=== PATIENT | female | born 1955 | race Caucasian/White ===

== ENCOUNTER 2016-04-23 12:21 | Emergency (ER) | payer OTHER ==
[2016-04-23] MEDS ORDERED: BUPIVACAINE HCL/PF 0.5% 30 ML VIAL ONE (12:56)
[2016-04-23] MEDS ORDERED: LIDOCAINE HCL 2% JELLY 1 APP/5 ML TUBE ONE (13:21)
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
--- NOTE | 2016-04-25 17:14 | RADIOLOGY REPORT ---
Limited single view of the pelvis demonstrates no displaced fracture, dislocation or bony destructive change. The visualized joints appear unremarkable. IMPRESSION: No displaced injury is identified. If clinically indicated, further evaluation and/or follow-up may be of benefit. MTDD
--- NOTE | 2016-04-25 17:15 | RADIOLOGY REPORT ---
Initial three views of the left hand at 1300 hours demonstrates a transverse fracture involving the proximal portion of the left fifth proximal phalanx. I do not identify interarticular involvement. There is approximately 60 degrees of apex volar and radial angulation. No other abnormality is identified. A second set of films at 1332 hours demonstrates interval reduction and splinting. No new abnormality is identified. IMPRESSION: Angulated fracture involving the left fifth proximal phalanx with subsequent reduction and splinting. JED
== END 2016-04-23 14:11 | disposition home or self-care (01) ==
LOC: ER 12:21
DX: S62.617A Displaced fracture of proximal phalanx of left little finger, initial encounter for closed fracture (principal); S00.81XA Abrasion of other part of head, initial encounter; M25.551 Pain in right hip; V01.00XA Pedestrian on foot injured in collision with pedal cycle in nontraffic accident, initial encounter; Y92.482 Bike path as the place of occurrence of the external cause; Y93.01 Activity, walking, marching and hiking; Z79.899 Other long term (current) drug therapy; Z74.3 Need for continuous supervision
CPT/HCPCS: 64450; 72170; 99284; A0425; A0429

== ENCOUNTER 2016-04-24 23:00 | Emergency (ER) | payer OTHER ==
[2016-04-24] MEDS ORDERED: KETOROLAC TROMETHAMINE 30 MG/ML VIAL ONE (23:41)
--- NOTE | 2016-04-24 23:41 | ER PHYSICIAN DOCUMENTATION ---
Physician Documentation [facility] Name:Terri Tenorio Age:60 yrs Sex:Female :1955 Arrival Date:04/24/2016 Time:23:00 Bed4 Private MD:Prince Huitron ED, Tom Disposition: 04/24 23:50 Chart complete. tl1 Disposition: 04/24/16 23:34 Discharged to Home/Self Care. Impression: Finger Closed Fracture. - Condition is Good. - Discharge Instructions: FINGER FRACTURE Closed - FRACTURE, Finger [Closed]. - Prescriptions for [place] 5- 325 mg Oral Tablet - take 1 tablet by ORAL route every 6 hours As needed; 20 tablet. - Medical Reconciliation form form. - Follow up: Jesus Patel MD; When: 1 - 2 days; Reason: Recheck today's complaints, Continuance of care. - Problem is new. - Symptoms have improved. HPI: 23:10 This 60 yrs old Female presents to ER via Walk In with complaints of Hand tl1 Pain. 23:10 WORSENING LEFT 5TH FINGER PAIN TODAY. She saw Dr Patel today and has scheduled ORIF of tl1 the fracture for Sunday, 2 days from now.. Historical: - Allergies: Codeine; - Home Meds: 1. HRT 2. Synthroid Oral - PMHx: THYROID PROBLEM; Finger Closed Fracture (April 23, 2016); - PSHx: None; - Tetanus: < 10 years. - Ebola Screening: : Patient negative for fever greater than or equal to 101.5 degrees Fahrenheit, and additional compatible Ebola Virus Disease symptoms. - Immunization history: Flu Vaccine < 1 year. - Social history: Smoking status: Patient states was never smoker of tobacco. ROS: 22:00 MS/extremity: Positive for pain, Negative for tingling, numbness. tl1 Exam: 22:00 Constitutional: This is a well developed, well nourished patient who is awake, alert, tl1 and in no acute distress. 22:00 Musculoskeletal/extremity: Extremities: grossly normal except: Left 5th finger slighly swollen and erythematous. Normal cap refill.. 22:00 Skin: Exam negative for acute changes. Vital Signs: 23:07 BP 130 / 80; Pulse 63; Resp 17; Temp 98.3; Pulse Ox 93% on R/A; Weight 58.97 kg; Height rh 5 ft. 3 in. (160.02 cm); Pain 10/; 23:07 Body Mass Index 23.03 (58.97 kg, 160.02 cm) rh MDM: 23:09 Patient medically screened. tl1 23:25 Differential diagnosis: tight splint. Data reviewed: vital signs, nurses notes, old tl1 medical records, and as a result, I will discharge patient. ED course: Splint removed by me. Cast padding partially removed and splint widened slightly and reapplied with loosening of the jossy wrap. She had lessening pain at the time of d/c.. Dispensed Medications: 23:33 Drug: Toradol 30 mg; Route: IM; Site: right deltoid; rh 23:33 Follow up: Response: No adverse reaction; Pain is decreased rh Signatures: Bacilio Vincent MD MD tl1 Martita Anton rh
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
== END 2016-04-24 23:41 | disposition home or self-care (01) ==
LOC: ER 23:00
DX: G89.11 Acute pain due to trauma (principal); S62.617D Displaced fracture of proximal phalanx of left little finger, subsequent encounter for fracture with routine healing
CPT/HCPCS: 96372; 99283; J1885

== ENCOUNTER 2016-04-26 11:03 | Day surgery (SDC) | payer OTHER ==
[2016-04-26] MEDS ORDERED: ACETAMINOPHEN 1,000 MG/100 ML VIAL IV SCH ×2 (11:25→13:46)
[2016-04-26] MEDS ORDERED: LIDOCAINE HCL 1% 20 ML VIAL SUBCUT ONE ×2 (11:25→13:46)
[2016-04-26] MEDS ORDERED: FAMOTIDINE IN SALINE, ISO-OSM 20 MG/50 ML PIGGYBACK IV SCH ×2 (11:25→13:46)
[2016-04-26] MEDS ORDERED: MIDAZOLAM HCL 2 MG/2 ML SYR IV ONE (11:25)
[2016-04-26] MEDS ORDERED: CEFAZOLIN SODIUM 1 GM in NORMAL SALINE MINI-BAG+ 100 ML IV ONE (11:25)
[2016-04-26] MEDS ORDERED: CEFAZOLIN SODIUM 1 GM/10 ML VIAL ONE (11:50)
[2016-04-26] MEDS ORDERED: MIDAZOLAM HCL 2 MG/2 ML VIAL ONE (11:50)
[2016-04-26] MEDS ORDERED: LACTATED RINGERS 1,000 ML IV SCH ×3 (12:00→14:00)
[2016-04-26] MEDS ORDERED: FENTANYL 100 MCG/2 ML VIAL ONE (12:30)
[2016-04-26] MEDS ORDERED: LIDOCAINE HCL 2% 20 ML VIAL ONE (12:49)
[2016-04-26] MEDS ORDERED: BUPIVACAINE HCL/PF 0.5% 30 ML VIAL ONE (12:55)
[2016-04-26] MEDS ORDERED: KETOROLAC TROMETHAMINE 30 MG/ML VIAL IV ONE (13:46)
[2016-04-26] MEDS ORDERED: FENTANYL 100 MCG/2 ML VIAL IV PRN (13:46)
[2016-04-26] MEDS ORDERED: MORPHINE SULFATE 10 MG/ML SYR IV PRN (13:46)
[2016-04-26 13:57] VITALS: TEMP 97.5
[2016-04-26] MEDS ORDERED: KETOROLAC TROMETHAMINE 30 MG/ML VIAL ONE (13:59)
[2016-04-26 14:07] VITALS: BP 146/83
--- NOTE | 2016-04-26 14:29 | RADIOLOGY REPORT ---
Two limited views of the left finger from the C-Arm in the operating room are compared with prior examination dated 04/23/2016. Again noted is the proximal phalanx fracture which has been reduced and now secured with two K-wires. Casting material is in place. IMPRESSION: Interval pinning of fracture of the left fifth proximal phalanx. [facility]
[2016-04-26 14:31] VITALS: PULSE 49; RESP 14; O2SAT 93
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
== END 2016-04-26 14:00 | disposition home or self-care (01) ==
LOC: SDS 11:03
PROVIDERS: ATTEND Orthopaedic Surgery
DX: S62.617A Displaced fracture of proximal phalanx of left little finger, initial encounter for closed fracture (principal); W51.XXXA Accidental striking against or bumped into by another person, initial encounter; M85.89 Other specified disorders of bone density and structure, multiple sites; E03.9 Hypothyroidism, unspecified; E78.5 Hyperlipidemia, unspecified; Z79.899 Other long term (current) drug therapy
CPT/HCPCS: 76000; J0690; J1885; J2250